=== PATIENT | female | born 1985 | race Caucasian/White ===

== ENCOUNTER 2017-11-19 13:04 | Emergency (ER) | payer MEDICARE ==
[~2017-11-19] VITALS: Ht 172.7 cm; Wt 68.0 kg
[2017-11-19] MEDS ORDERED: BUSP10TA3 PO (13:24)
[2017-11-19] MEDS ORDERED: TOPI200T16 PO (13:24)
[2017-11-19] MEDS ORDERED: FLUO40CA8 PO (13:24)
[2017-11-19] MEDS ORDERED: PRAZ1CAP5 PO (13:24)
[2017-11-19] MEDS ORDERED: NALT50TA PO (13:24)
--- NOTE | 2017-11-19 14:20 | NUR ---
Jacqueline here for psych eval. Pt resting in [facility] in room 3 with NAD noted.
--- NOTE | 2017-11-19 15:14 | NUR ---
Patient discharged to home in stable conditon. Written and verbal after care instructions given. Patient verbalizes understanding of instructions. Stressed follow up or return to ER for worsening s/s. Pt was given referrals by Jacqueline.
== END 2017-11-19 15:37 | disposition home or self-care (01) ==
LOC: ER 13:05
DX: F32.9 Major depressive disorder, single episode, unspecified (principal); K21.9 Gastro-esophageal reflux disease without esophagitis; Z90.49 Acquired absence of other specified parts of digestive tract; Z88.0 Allergy status to penicillin; Z88.2 Allergy status to sulfonamides; Z79.899 Other long term (current) drug therapy
CPT/HCPCS: A4663